=== PATIENT | female | born 1930 | race Caucasian/White ===

== ENCOUNTER 2020-03-20 09:54 | Inpatient (IN) | payer MEDICARE, OTHER ==
[2020-03-20] MEDS ORDERED: Fentanyl 100 MCG/2 ML VIAL ONE (10:17)
--- NOTE | 2020-03-20 10:38 | RAD ---
Exam: Single view of the pelvis HISTORY: Pelvic and hip pain after fall COMPARISON: None FINDINGS: A single view the pelvis shows an intertrochanteric right femur fracture. Mild overlying so ft tissue swelling is seen. No degenerative changes seen in either hip. Degenerative changes are seen in the lumbar spine. IMPRESSION: Intertrochanteric right femur fracture
--- NOTE | 2020-03-20 10:38 | RAD ---
EXAM: 2 views of the right hip HISTORY: Right hip pain after fall COMPARISON: None FINDINGS: 2 views of the right hip shows an intertrochanteric right femur fracture. No degenerative c hanges are seen. Mild overlying soft tissue swelling is present. IMPRESSION: Intertrochanteric right femur fracture
--- NOTE | 2020-03-20 10:39 | RAD ---
EXAM: Single view of the chest HISTORY: Unwitnessed fall with right hip fracture COMPARISON: None FINDINGS: Single view of the chest shows a normal sized cardiomediastinal silhouette. Atheroscleroti c calcifications are seen in the aorta. There is a large hiatal hernia. There is elevation the right hemidiaphragm. There is no evidence of consolidation, mass, or pleural effusion. No acute osseo us abnormality. IMPRESSION: 1. No evidence of acute cardiopulmonary disease 2. Large hiatal hernia
--- NOTE | 2020-03-20 10:56 | CT ---
Cervical spine CT without contrast: 03/20/2020 COMPARISON: None HISTORY: Fall, trauma, assess for fracture TECHNIQUE: Axial CT imaging at 2.5 mm intervals through the cervical spine without contrast. Coronal and sagittal reformatted imaging obtained. FINDINGS: Visualized lung apices are unremarkable. There is atherosclerotic calcification of the aort ic arch. The occipital condyles, the dens, the craniocervical junction, the atlantoaxial interspace, and the c ervicothoracic junction demonstrate no acute findings. There is prominent degenerative change at the atlantoaxial interspace. There is significant degenerat windy change at the C1-2 articulation on the left. There is multilevel mid cervical spine facet and uncovertebral osteophyte formation, right greater than left. No displaced fracture or evidence of dislocation is appreciated. There is a hypodense 1.4 cm nodule w ithin the posterior aspect of the left lobe of the thyroid gland for which follow-up thyroid ultrasound is suggested. IMPRESSION: Extensive cervical spine degenerative change with no evidence for acute fracture or dislo cation. Posterior left thyroid nodule as above.
--- NOTE | 2020-03-20 10:58 | CT ---
Head CT without contrast 03/20/2020: Comparison: None HISTORY: Fall, trauma, pain TECHNIQUE: Axial CT imaging at 5 mm intervals from vertex through skull base without contrast FINDINGS: The visualized paranasal sinuses and mastoid air cells are well-aerated. There is no displa nataly calvarial fracture. There is mild diffuse cerebral volume loss. Mild periventricular hypodensity is noted, evidence of small vessel disease. No intracranial hemorrhage, midline shift, or mass effect. IMPRESSION: No intracranial hemorrhage or displaced calvarial fracture.
[2020-03-20 11:33] LABS: Bacteria/HPF 3+ HPF (None Seen); Bilirubin Negative (Negative); Blood, Urine 1+ (Negative); Clarity Extra Turbid (Clear); Glucose, Urine (Dipstick) Normal (Negative); Ketone, Urine Trace mg/dL (Negative); Leukocyte 500 Leu/uL (Negative); Nitrite Negative (Negative); Protein, Urine (Dipstick) 300 mg/dL (Neg-Trace); RBC/HPF 21-50 HPF (0-3); Specific Gravity, Urine 1.023 (1.002-1.036); Squamous Epithelial 0-3 HPF (0-3); Urobilinogen Normal mg/dL (Less than 2); WBC/HPF Greater than 50 HPF (0-3); pH, Urine 6.5 (5.0-9.0)
[2020-03-20 11:45] LABS: #Basophils 0.1 thou/uL (0.0-0.2); #Eosinphils 0.1 thou/uL (0.0-0.7); #Lymphocytes 1.6 thou/uL (1.20-3.40); #Monocytes 0.6 thou/uL (0.11-0.59); #Neutrophils 9.6 thou/uL (1.40-6.50); %Basophils 0.7 % (0.0-1.0); %Eosinophils 1.2 % (0.0-10.0); %Lymphocytes 13.3 % (21.0-51.0); %Monocytes 4.6 % (0.0-10.0); %Neutrophils 80.2 % (42.0-75.0); Hemoglobin 12.6 g/dL (12.0-16.0); Mean Corpuscular HGB CONC 31.7 g/dL (32.0-36.0); Mean Corpuscular Hemoglobin 32.1 pg (27.0-31.0); Mean Platelet Volume 7.5 fL (7.4-10.4); Platelet Count 265 thou/uL (130-400); RBC Distribution Width 12.6 % (11.5-14.5); Red Blood Cell (RBC) Count 3.92 mill/uL (4.20-5.40)
[2020-03-20 11:51] LABS: PTT 26.5 sec (22.9-36.1); Prothrombin Time 13.7 sec (12.0-14.7)
[2020-03-20 12:11] LABS: ALT (SGPT) 12 U/L (8-55); AST (SGOT) 13 U/L (5-34); Albumin 3.2 g/dL (3.4-4.8); Alkaline Phosphatase 84 U/L (40-110); Anion Gap 13 mmol/L (10-20); BUN (Urea Nitrogen) 22 mg/dL (9.8-20.1); Bilirubin, Total 0.5 mg/dL (0.2-1.2); CK (CPK) 55 U/L (29-168); Calc. Creatinine Clearance 0 mL/min (70-130); Calcium 8.7 mg/dL (7.8-10.44); Carbon Dioxide 26 mmol/L (23-31); Chloride 106 mmol/L (98-107); Estimated GFR-MDRD 66; Globulin 3.8 g/dL (2.4-3.5); Glucose 131 mg/dL (83-110); Potassium 3.4 mmol/L (3.5-5.1); Sodium 142 mmol/L (136-145)
[2020-03-20] MEDS ORDERED: cefTRIAXone\\ROCEPHIN 2 GM VIAL ONE (12:17)
[2020-03-20 13:27] LABS: Phosphorus 3.1 mg/dL (2.3-4.7)
[2020-03-20] MEDS ORDERED: CEFAZOLIN 2 GM in Premix Bag 1 BAG IVPB SCH (13:30)
[2020-03-20] MEDS ORDERED: Morphine 2 MG/ML VIAL SLOW IVP PRN (14:01)
[2020-03-20] MEDS ORDERED: Dextrose 50% Abboject 50 ML SYRINGE SLOW IVP PRN (14:01)
[2020-03-20] MEDS ORDERED: Dextrose 5% in Water 1,000 ML IV PRN (14:01)
[2020-03-20] MEDS ORDERED: Ondansetron PF 4 MG/2 ML Vial IVP PRN (14:01)
[2020-03-20] MEDS ORDERED: traMADol HCl 50 MG TAB PO PRN ×2 (14:03)
[2020-03-20] MEDS ORDERED: Ondansetron PF 4 MG/2 ML Vial ONE (14:03)
[2020-03-20] MEDS ORDERED: Morphine 4 MG/ML VIAL ONE (14:03)
[2020-03-20] MEDS ORDERED: Cyclobenzaprine 10 MG TAB PO PRN (14:03)
--- NOTE | 2020-03-20 14:10 | CON ---
DATE OF CONSULTATION: This is Miguel Jenkins PA-C dictating a report for Francisco Arriaga MD. HISTORY OF PRESENT ILLNESS: We were asked by ER to see the patient. The patient resides in [facility] when she had a fall sustaining a right hip fracture. The patient has fairly significant dementia, so getting history from daughter, who is at the bedside. Daughter says mom gets around okay, dementia is obviously getting worse unfortunately, but is able to do most of her activities, feed herself, but needs some help with memory. It is not sure when the patient fell, but was found down this morning. She has a small little abrasion cut to the back of the head, so no one is sure if there was any loss of consciousness. So far, the patient has gotten 100 of fentanyl because she does have some right hip pain, and if she moves, it tends to get worse. Otherwise while I am talking to the daughter, the patient is moving both of her feet. PAST MEDICAL HISTORY: Positive for Alzheimer dementia; osteoarthritis; some hypertension; GERD; esophagitis; hyperlipidemia; cervicalgia; hearing loss; delusional disorder; depressive disorder; constipation; cardiac arrhythmia, unspecified; anemia; urinary tract infection currently; and weight loss. This is all gleaned from her medical record that was sent to us from the skilled facility. ALLERGIES: HYDROCODONE, CIPRO, SULFACETAMIDE, AND ADHESIVE BANDAGES. PAST SURGICAL HISTORY: She has had a knee replacement, hysterectomy. FAMILY HISTORY: Noncontributory. MEDICATIONS: 1. Tylenol. 2. Aspirin. 3. Calcium. 4. Vitamin D3. 5. Centrum Silver. 6. Calcium tablets. 7. Cranberry capsule. 8. Duloxetine. 9. Garlic capsule. 10. Losartan. 11. Potassium. 12. MiraLAX. 13. Pravastatin. 14. Risperdal. SOCIAL HISTORY: Resides in [facility]. Oldest daughter is at the bedside. No alcohol, nicotine, drug uses currently or in the past. REVIEW OF SYSTEMS: Obvious hip pain, some confusion, and recurrent UTI. Otherwise, rest of the review of systems is unobtainable. PHYSICAL EXAMINATION: Mildly undernourished, very pleasant, sweet female, resting on a gurney in room 1 in the ER. No acute distress unless she moves. I could get the patient to verbalize, response to any questions. Scalp; small abrasion and laceration to the posterior scalp that is mildly tender to palpation. Face symmetric. Tongue midline. Neck is supple. No tenderness to palpation. Moving upper extremities equally. Respirations 16. No acute distress. Pelvis; no pain with rocking pelvis, but does cause right hip pain. Any movement of the right lower extremity causes her good deal of pain. Bilateral lower DP and PT pulses are intact. Movements to both feet are intact and she responds to stimuli. LABORATORY DATA: White blood cell count 12, hemoglobin 12.6, hematocrit 39.8, platelets 265. Coags normal. Chemistries; BUN 22, glucose 131. Urine positive for UTI, wbc's greater than 50, bacteria 3+. IMAGING STUDIES: X-rays show a right intertrochanteric fracture. PLAN: We will let Trauma see the patient today, get her medically tuned up if needed. I have reserved a spot in the operating room for 7:30 tomorrow morning. I have gone over the risks and benefits of surgery with the family. The oldest daughter is at the bedside. I have gone over questions, concerns, and answered these, and family is amenable to go forth with surgery. We will keep her n.p.o. after midnight, get her on some antibiotics for presurgery and postsurgery and get her consented. Oldest daughter states different sister will be here tomorrow, so if other questions or concerns arise, we will address them at that time. Job ID: [id number]
[2020-03-20] MEDS ORDERED: Sodium Chloride 0.9% 1,000 ML IV SCH (14:15)
[2020-03-20] MEDS ORDERED: Potassium Phosphate 30 MMOL in Sodium Chloride 0.9% 250 ML 250 ML IVPB SCH (15:30)
--- NOTE | 2020-03-20 16:25 | HP ---
TRAUMA SURGEON: Dr. Marc. CONSULTING PHYSICIAN: Dr. Arriaga. HISTORY OF PRESENT ILLNESS: The patient is an 89-year-old female, who presented to the emergency department via EMS after she was found down at her detention. The patient's family is at the bedside. They report the patient usually ambulates without a walker or cane. She does have a history of dementia. She is intermittently able to recognize her family members and is usually cooperative. They do report at this time her mental status has declined from her baseline, and she is not able to easily communicate. She moves all her extremities. Her eyes are open spontaneously. It is unsure if the patient hit her head or had a loss of consciousness. She does have a recent history of UTI as well, on Keflex. The patient currently is taking aspirin, but no other anticoagulation. Upon my evaluation, the patient had right-sided hip pain and appeared to be uncomfortable earlier. She had received fentanyl IV. She remains hemodynamically stable. Zavala catheter has been placed with yellow urine in bag. The patient has also received one dose of IV Rocephin in the emergency department. Orthopedic Surgery has evaluated the patient and planned to take her to the OR tomorrow. REVIEW OF SYSTEMS: Unable to complete as the patient has altered mental status and history of dementia. PAST MEDICAL HISTORY: Positive for Alzheimer disease, hyperlipidemia, delusional disorder, depression, chronic pain, hearing loss, hypertension, GERD, osteoarthritis, osteoporosis, and arrhythmia of unknown origin. PAST SURGICAL HISTORY: Right knee replacement and hysterectomy. SOCIAL HISTORY: Negative for tobacco, drug, or alcohol use. The patient lives at a detention full-time. MEDICATIONS: Include; 1. Tylenol. 2. Aspirin 81 mg once a day. 3. Calcium with vitamin D3. 4. Centrum Silver. 5. Cholecalciferol. 6. Cranberry capsules. 7. Duloxetine. 8. Garlic capsules. 9. Losartan. 10. MiraLAX. 11. Pravastatin. 12. Risperdal. ALLERGIES: Cipro, Hydrocodone, tape, Sulfacet. PHYSICAL EXAMINATION: VITAL SIGNS: Temperature 98.5, pulse 86, respirations 24, oxygen saturation 94% on room air, and blood pressure 128/69. PRIMARY SURVEY: Airway intact. Adequate breath sounds bilaterally. 2+ pulses in bilateral radials, femorals, and DPs. GCS 14, -1 for confusion, this is the patient's baseline; however, family reports she is more confused than usual. Gross motor and sensation intact. The patient has some scattered bruising on her extremities with a skin tear on her left upper extremity. Right-sided shoulder bruise appears to be subacute. No signs of any external bleeding. SECONDARY SURVEY: HEAD: Normocephalic. No gross palpable skull deformities or tenderness. EYES: Pupils 3-2, equal, round, reactive to light bilaterally. ENT: No hemotympanum. No epistaxis. No septal hematoma. Midface stable to manipulation. No blood in the oropharynx. Dentition is intact. No anterior neck injury/crepitus/tenderness. C-SPINE: No step-offs or deformities. Nontender. C-collar not in place. CHEST: Nontender. No crepitus. No abrasions or ecchymosis noted. Equal chest movement, clear bilaterally. ABDOMEN: Soft, nontender, nondistended. PELVIS: Stable to palpation. Nontender. No abrasions or ecchymosis noted. RECTAL: Deferred. GENITOURINARY: Normal external genitalia with Zavala in place with yellow urine in bag. EXTREMITIES: Right lower extremity slightly shortened compared to the left with some pain over the right eye. No abrasions or ecchymosis noted. 2+ pulses in bilateral radials, femorals, and DPs. BACK/SPINE: No step-offs or deformities. Nontender. No abrasions or ecchymosis noted. NEUROLOGIC: 5/5 strength in bilateral manufacturing sales representative, plantar flexion, dorsiflexion. Gross normal sensation x4 extremities. LABORATORY FINDINGS: White count 12.0, hemoglobin 12.6, hematocrit 39.5, and platelets 265. INR 1.0, PTT 26.5. Sodium 142, potassium 3.4, chloride 106, bicarb 26, BUN 22, creatinine 0.82, glucose 131, phosphorus 3.1, magnesium 2.0, total bilirubin 0.5, AST 13, ALT 12, and alkaline phosphatase 28. CK 55. UA is positive for bacteria, white cells, leuk esterase, trace ketones, protein, 1+ blood. CT scan of the brain demonstrates no intracranial hemorrhage or displaced calvarial fracture. CT scan of the C-spine demonstrates extensive cranial spine degenerative changes with no evidence of acute fracture dislocation. Posterior left thyroid nodule as above. X-ray of the right hip demonstrates intertrochanteric right femur fracture. Chest x-ray demonstrates no evidence of acute cardiopulmonary disease. Large hiatal hernia. X-ray of the pelvis demonstrates intertrochanteric right femur fracture. ASSESSMENT: 1. Status post found down in her detention. 2. Right intertrochanteric femur fracture. 3. Urinary tract infection, complicated. 4. Acute traumatic pain secondary to injuries listed above. 5. History of Alzheimer disease, hyperlipidemia, depression, chronic pain, hearing loss, hypertension, gastroesophageal reflux disease, osteoarthritis, osteoporosis, and arrhythmia. PLAN: The patient will be admitted to the Trauma Service, and she will go to the regular surgical nursing floor. She will have a regular diet. N.p.o. at midnight. She is to receive 1 L of normal saline at 75 an hour x1 bag. She will receive both scheduled and p.r.n. pain medications. Orthopedic Surgery has evaluated the patient and plans to take her to the OR tomorrow. We will restart her home medications as clinically indicated. Received rocephin in ED for compliucated UTI present on admission. Follow up culture on sensitivity and start antibiotics as indicated. Postoperatively, she will work with Physical and Occupational Therapy. She will likely need placement in a usp facility. We will likely discharge her back to her detention to a skilled bed. This patient was discussed with Dr. Marc before this dictation. Job ID: [id number] [facility]
[2020-03-20] MEDS: Acetaminophen 500 MG TAB PO SCH ×2 (17:51→23:31)
[2020-03-20] MEDS: Famotidine/PF 20 mg/2ml Vial SLOW IVP SCH (20:13)
[2020-03-20] MEDS: Senokot S 8.6-50 MG TAB PO SCH (20:13)
[2020-03-20 20:25] VITALS: BMI 26.2
--- NOTE | 2020-03-20 23:34 | PRG ---
DATE OF SERVICE: 03/20/2020 SUBJECTIVE: Patient was seen during evening rounds, resting comfortably, in no acute distress. The patient's pain has been well controlled. OBJECTIVE: VITAL SIGNS: Stable, afebrile. GENERAL: Elderly female, resting comfortably, in no distress. PLAN: Continue pain regimen and supportive care. Orthopedic Surgery, Dr. Arriaga plans to take the patient to the OR around 7:30 in the morning for repair of her right intertrochanteric femur fracture. The patient's urinalysis is pending cultures. We will have PT and OT work with the patient postop tomorrow. Job ID: [id number]
[2020-03-21] MEDS: Acetaminophen 500 MG TAB PO SCH ×6 (05:03→23:48)
[2020-03-21 05:28] LABS: #Basophils 0.1 thou/uL (0.0-0.2); #Eosinphils 0.1 thou/uL (0.0-0.7); #Lymphocytes 1.3 thou/uL (1.20-3.40); #Monocytes 0.7 thou/uL (0.11-0.59); #Neutrophils 6.6 thou/uL (1.40-6.50); %Basophils 0.6 % (0.0-1.0); %Eosinophils 0.9 % (0.0-10.0); %Lymphocytes 15.3 % (21.0-51.0); %Monocytes 7.7 % (0.0-10.0); %Neutrophils 75.5 % (42.0-75.0); Hemoglobin 12.1 g/dL (12.0-16.0); Mean Corpuscular HGB CONC 31.5 g/dL (32.0-36.0); Mean Platelet Volume 7.4 fL (7.4-10.4); Platelet Count 232 thou/uL (130-400); RBC Distribution Width 12.8 % (11.5-14.5); Red Blood Cell (RBC) Count 3.78 mill/uL (4.20-5.40); White Blood Cell (WBC) Count 8.8 thou/uL (4.8-10.8)
[2020-03-21 05:51] LABS: Anion Gap 14 mmol/L (10-20); BUN (Urea Nitrogen) 21 mg/dL (9.8-20.1); Calc. Creatinine Clearance 54 mL/min (70-130); Calcium 8.1 mg/dL (7.8-10.44); Carbon Dioxide 23 mmol/L (23-31); Chloride 108 mmol/L (98-107); Estimated GFR-MDRD 73; Glucose 107 mg/dL (83-110); Magnesium 1.8 mg/dL (1.6-2.6); Phosphorus 3.6 mg/dL (2.3-4.7); Potassium 3.8 mmol/L (3.5-5.1); Sodium 141 mmol/L (136-145)
[2020-03-21] MEDS ORDERED: Fentanyl 100 MCG/2 ML VIAL ONE (06:20)
[2020-03-21] MEDS ORDERED: Albuterol Sulfate HFA (OR ONLY) ONE (06:20)
[2020-03-21] MEDS ORDERED: Lidocaine 4% Topical Sol 50 ML BOT ONE (06:20)
[2020-03-21] MEDS ORDERED: Dexamethasone 4 mg/ml Vial ONE (06:51)
[2020-03-21] MEDS ORDERED: Lidocaine 1% (PF) 30 ML VIAL ONE (06:55)
[2020-03-21] MEDS ORDERED: Bupivacaine PF 0.5% 30 ML VIAL ONE (07:16)
[2020-03-21 08:06] LABS: SARS-CoV-2 NAA Rapid Test Not Detected (NotDetected)
--- NOTE | 2020-03-21 08:46 | RAD ---
EXAM: 2 views of the right hip HISTORY: Right femur fracture COMPARISON: None FINDINGS: 2 views of the right hip shows the patient is status post ORIF of the intertrochanteric rig ht femur fracture. No perihardware lucency is seen. No degenerative changes are seen. No soft tissue swelling is present. IMPRESSION: Status post ORIF of right femur fracture without evidence of complication
[2020-03-21] MEDS ORDERED: Phenylephrine 10 MG/ML VIAL ONE (09:22)
[2020-03-21] MEDS ORDERED: PHENYLEPHRINE-NS 100 MCG/ML 10 ML SYRINGE ONE (09:53)
[2020-03-21] MEDS ORDERED: PROPOFOL 200 MG/20 ML VIAL ONE (09:53)
[2020-03-21] MEDS ORDERED: Ondansetron PF 4 MG/2 ML Vial ONE (09:53)
[2020-03-21] MEDS ORDERED: Dexamethasone 20 MG/5 ML VIAL ONE (09:53)
[2020-03-21] MEDS ORDERED: Bupivacaine HCl 0.5%/Epinephrine 1:200,000/PF 30 ml Vial ONE (09:53)
[2020-03-21] MEDS ORDERED: EPHEDRINE 25 MG/5 ML SYRINGE ONE (09:53)
[2020-03-21] MEDS: Polyethylene Glycol 3350 17 GM Packet PO SCH (10:52)
[2020-03-21] MEDS: Senokot S 8.6-50 MG TAB PO SCH ×2 (10:52→21:33)
[2020-03-21] MEDS: Losartan 25 MG TAB PO SCH (10:54)
--- NOTE | 2020-03-21 11:49 | OP ---
DATE OF PROCEDURE: 03/21/2020 PREOPERATIVE DIAGNOSIS: Right intertrochanteric femur fracture. POSTOPERATIVE DIAGNOSIS: Right intertrochanteric femur fracture. PROCEDURE PERFORMED: Right dynamic hip screws for intertrochanteric femur fracture. ANESTHESIA: Spinal. FORENSIC MANAGER: Yarelis Pastrana PA-C IMPLANTS: Synthes DHS set was used with 135-degree 3-hole side plate. ESTIMATED BLOOD LOSS: 200 mL. COMPLICATIONS: None. DRAINS: None. SPECIMEN: None. OUTCOME: Satisfactory. INDICATIONS FOR PROCEDURE: The patient is an 89-year-old lady, status post ground level fall sustaining a right intertrochanteric femur fracture. After discussion with the patient and her daughter including risks and benefits, we have decided to proceed with open reduction and internal fixation utilizing a DHS device. Risks and benefits have been discussed and informed consent obtained. DESCRIPTION OF PROCEDURE: The patient was brought to the operating room and a time-out performed followed by induction of spinal anesthesia. The patient was positioned supine on the fracture table with the injured extremity held in longitudinal traction and slight internal rotation. The well leg was scissored to allow for AP and lateral C-arm imaging of the hip. Next, a sterile prep and drape was performed of the right lateral thigh. Under C-arm guidance, a skin incision was made at the proximal lateral thigh. After skin was sharply incised, dissection was carried down bluntly to the underlying fascia fabiola. This was incised in line with the skin incision reflected anteriorly and posteriorly. The fascia of the vastus lateralis was incised in line with skin incision and the muscle belly swept off the posterior leaflet and reflected anteriorly gaining access to the lateral cortex of the femur. 135 degree jig was used to pass a threaded guidewire from the lateral cortex of the femur up the femoral neck into the femoral head. Measurement of this guidewire was used to determine depth of reaming with the step reamer. Once the head and neck were prepared with the reamer, a 90 mm hip screw with 3-hole sideplate was inserted in the wound with the hip screw delivered up into the femoral head approaching a [id number] position. The plate was then held in place to the lateral cortex of the proximal femur with a total of 3 cortical screws. At completion of this, the jig was removed from the plate and hip screw, and final AP and lateral C-arm images were obtained that showed anatomic alignment of the fracture. The wound was then irrigated with bulb syringe and closed in layers with 0 Vicryl for the fascia fabiola, followed by 2-0 Vicryl subcutaneously, and newton for the skin. A Xeroform gauze and tape dressing were then applied to the lateral thigh. It should be noted that my assistant associate professor was utilized for reflection of the vastus lateralis muscle belly to allow for exposure of the lateral femur so that I could proceed with placement of hardware. Head Of Housekeeping was also used for manipulation of the leg to provide an anatomic reduction prior to insertion of hardware. There were no complications. The patient tolerated the procedure well. Job ID: [id number]
[2020-03-21] MEDS: CEFAZOLIN 2 GM in Premix Bag 1 BAG IVPB SCH ×2 (16:52→23:48)
--- NOTE | 2020-03-21 19:05 | PRG ---
DATE OF SERVICE: 03/21/2020 SUBJECTIVE: Patient was seen this morning during rounds. She was sitting up in bed with no signs of acute distress. She is postoperative day 0 after fixation of her right intertrochanteric femur fracture. Patient's daughter is at bedside, reported that she is much more alert and herself today. She has not had anything to eat postoperatively yet. She will work with Physical and Occupational Therapy and will likely need placement at a [facility] facility. She [facility] in a [facility]. OBJECTIVE: VITAL SIGNS: Temperature 98.1, pulse 69, respirations 18, oxygen saturation 96% on 2 L nasal cannula, blood pressure 102/64. GENERAL: Well-appearing elderly female, sitting up in bed with no signs of acute distress. PULMONARY: Equal chest rise and fall, clear breath sounds bilaterally. No signs of acute respiratory distress. CARDIAC: Regular rate and rhythm. GI: Abdomen is soft, nontender, nondistended. EXTREMITIES: 2+ pulses in all extremities. Gross motor and sensation intact. No significant swelling noted. NEUROLOGIC: GCS is 14. This is her baseline. LABORATORY FINDINGS: White count 8.8, hemoglobin 12.1, hematocrit 38.4, platelets 232. Sodium 141, potassium 3.8, chloride 108, bicarb 23, BUN 21, creatinine 0.75, glucose 107. DIAGNOSTIC FINDINGS: There are no new diagnostic findings to discuss. ASSESSMENT: 1. Status post found down at [facility]. 2. Right intertrochanteric femur fracture, status post repair. 3. Urinary tract infection, complicated, present on admission. 4. History of Alzheimer's, hypertension, arrhythmia, GERD, depression, and chronic pain. PLAN: Continue regular diet. Discontinue IV fluids. Discontinue Zavala catheter. Follow up urine culture. Additional antibiotics per culture result. Repeat blood work in the morning. Start physical and occupational therapy. The patient will be discharged back to her [facility] but with skilled bed when she is ready for discharge. Restart home medications as clinically indicated. This patient was seen and evaluated by Dr. Still and myself this morning during rounds. Job ID: [id number]
[2020-03-21] MEDS ORDERED: risperiDONE 0.25 MG TAB PO SCH (21:00)
[2020-03-21] MEDS: Atorvastatin Calcium 10 MG TAB PO SCH (21:33)
[2020-03-21] MEDS: Famotidine/PF 20 mg/2ml Vial SLOW IVP SCH (22:51)
--- NOTE | 2020-03-22 04:12 | PRG ---
DATE OF SERVICE: 03/22/2020 The patient is currently on the surgical floor. She is status post being found down at a residential where she was admitted for a right intertrochanteric femur fracture which she underwent surgical repair today, specifically the right dynamic hip screw. The patient tolerated this well. The nurses report no issues. She has a diet order and her medications have been changed to p.o. At the time of my visit, her vital signs were stable. She was afebrile. She was resting comfortably in bed. She appeared in no distress. I did not awaken her for an exam. PLAN: The plan will be to continue supportive care and begin working on placement once she is evaluated by Physical and Occupational Therapy. Job ID: [id number]
[2020-03-22 05:41] LABS: #Lymphocytes 1.4 thou/uL (1.20-3.40); #Monocytes 1.3 thou/uL (0.11-0.59); #Neutrophils 10.2 thou/uL (1.40-6.50); %Basophils 0.3 % (0.0-1.0); %Eosinophils 0.1 % (0.0-10.0); %Lymphocytes 11.2 % (21.0-51.0); %Neutrophils 78.5 % (42.0-75.0); Hemoglobin 11.2 g/dL (12.0-16.0); Mean Corpuscular HGB CONC 32.8 g/dL (32.0-36.0); Mean Platelet Volume 7.9 fL (7.4-10.4); Platelet Count 195 thou/uL (130-400); RBC Distribution Width 12.5 % (11.5-14.5); White Blood Cell (WBC) Count 12.9 thou/uL (4.8-10.8)
[2020-03-22] MEDS: Acetaminophen 500 MG TAB PO SCH ×4 (05:47→22:20)
[2020-03-22 06:16] LABS: Anion Gap 11 mmol/L (10-20); BUN (Urea Nitrogen) 19 mg/dL (9.8-20.1); Calc. Creatinine Clearance 55 mL/min (70-130); Calcium 8.3 mg/dL (7.8-10.44); Carbon Dioxide 27 mmol/L (23-31); Chloride 105 mmol/L (98-107); Estimated GFR-MDRD 74; Glucose 114 mg/dL (83-110); Magnesium 1.9 mg/dL (1.6-2.6); Phosphorus 2.6 mg/dL (2.3-4.7); Potassium 3.9 mmol/L (3.5-5.1); Sodium 139 mmol/L (136-145)
[2020-03-22] MEDS ORDERED: Famotidine/PF 20 mg/2ml Vial SLOW IVP SCH (09:00)
[2020-03-22] MEDS ORDERED: Magnesium 2 GM/50 ML 2 GM in Premix Bag 1 BAG IVPB SCH (09:00)
[2020-03-22] MEDS ORDERED: PHOS-NAK 1 PKT PACK PO SCH (09:00)
[2020-03-22] MEDS: Polyethylene Glycol 3350 17 GM Packet PO SCH (09:22)
[2020-03-22] MEDS: CEFAZOLIN 2 GM in Premix Bag 1 BAG IVPB SCH (09:22)
[2020-03-22] MEDS: Aspirin 81 mg Enteric Coated Tablet PO SCH ×2 (09:24→22:17)
[2020-03-22] MEDS: Famotidine 20 MG TAB PO SCH ×2 (09:24→22:18)
[2020-03-22] MEDS: Senokot S 8.6-50 MG TAB PO SCH ×2 (09:24→22:18)
[2020-03-22] MEDS: Losartan 25 MG TAB PO SCH (09:25)
--- NOTE | 2020-03-22 16:34 | PRG ---
DATE OF SERVICE: 03/22/2020 SUBJECTIVE: The patient was seen this morning during rounds. She was sitting up in her bed, a little bit more sleepy than yesterday. Daughter at the bedside reports that she is not as awake and alert as yesterday. She is currently not receiving any scheduled pain medications other than Tylenol. She was restarted on her Risperdal, which we will hold for now. OBJECTIVE: VITAL SIGNS: Temperature 98.2, pulse 64, respirations 14, oxygen saturation 93% on room air, and blood pressure 138/82. GENERAL: Well-appearing elderly female, sitting up in bed, resting comfortably and asleep, with no signs of acute distress. She is easily arousable. PULMONARY: Equal chest rise and fall. Clear breath sounds bilaterally. No signs of acute respiratory distress. CARDIAC: Regular rate and rhythm. GI: Abdomen is soft, nontender, and nondistended. EXTREMITIES: 2+ pulses in all extremities. Gross motor and sensation intact. No significant swelling noted. NEUROLOGIC: GCS is 14, -1 for confusion. LABORATORY FINDINGS: White count 12.9, hemoglobin 11.2, hematocrit 34.2, and platelets 195. Sodium 139, potassium 3.9, chloride 105, bicarb 27, BUN 19, creatinine 0.74, and glucose 114. Phosphorus 2.6. Magnesium 1.9. DIAGNOSTIC FINDINGS: There are no new diagnostic findings to report. ASSESSMENT: 1. [facility] 2. Right intertrochanteric femur fracture status post repair. 3. Urinary tract infection, complicated, status post treatment outside of the hospital. 4. History of Alzheimer's. 5. Hypertension. 6. Arrhythmia. 7. Gastroesophageal reflux disease. 8. Depression. 9. Chronic pain. PLAN: Continue current diet and pain regimen. Continue physical and occupational therapy. Hold risperidone for now. Start the patient on aspirin for DVT prophylaxis. Replace magnesium and phosphorus. The patient's culture completed at the time of this admission status post treatment of UTI did not grow any thing except skin bushra. The patient is pending discharge to swing bed in [place]. She will be ready for discharge tomorrow if she continues to improve. Job ID: [id number]
[2020-03-22] MEDS: Atorvastatin Calcium 10 MG TAB PO SCH (22:17)
[2020-03-23 05:39] LABS: #Basophils 0.1 thou/uL (0.0-0.2); #Eosinphils 0.2 thou/uL (0.0-0.7); #Lymphocytes 2.1 thou/uL (1.20-3.40); #Monocytes 0.9 thou/uL (0.11-0.59); #Neutrophils 4.9 thou/uL (1.40-6.50); %Basophils 1.1 % (0.0-1.0); %Eosinophils 2.3 % (0.0-10.0); %Lymphocytes 26.1 % (21.0-51.0); %Monocytes 10.8 % (0.0-10.0); %Neutrophils 59.8 % (42.0-75.0); Hemoglobin 10.4 g/dL (12.0-16.0); Mean Corpuscular HGB CONC 32.9 g/dL (32.0-36.0); Mean Corpuscular Hemoglobin 32.9 pg (27.0-31.0); Mean Platelet Volume 7.9 fL (7.4-10.4); Platelet Count 192 thou/uL (130-400); RBC Distribution Width 12.5 % (11.5-14.5); Red Blood Cell (RBC) Count 3.15 mill/uL (4.20-5.40); White Blood Cell (WBC) Count 8.2 thou/uL (4.8-10.8)
[2020-03-23 05:56] LABS: Anion Gap 10 mmol/L (10-20); BUN (Urea Nitrogen) 21 mg/dL (9.8-20.1); Calc. Creatinine Clearance 57 mL/min (70-130); Calcium 8.1 mg/dL (7.8-10.44); Carbon Dioxide 26 mmol/L (23-31); Chloride 104 mmol/L (98-107); Estimated GFR-MDRD 78; Glucose 92 mg/dL (83-110); Phosphorus 2.4 mg/dL (2.3-4.7); Potassium 3.8 mmol/L (3.5-5.1); Sodium 136 mmol/L (136-145)
[2020-03-23] MEDS: Acetaminophen 500 MG TAB PO SCH ×3 (06:06→17:00)
--- NOTE | 2020-03-23 08:06 | PRG ---
DATE OF SERVICE: 03/23/2020 The patient is currently on the day surgical floor. She is postop day 2 status post open reduction and internal fixation of a right hip fracture. She has tolerated that procedure well. She has begun working with Physical and Occupational therapy though today, it was fairly limited and she will most likely require placement in a swing bed facility or skilled facility which the day team and case management are working on. Her vital signs are stable. She is afebrile. Nurses report no issues. At the time of my visit, she was resting comfortably. She was asleep. She appeared in no distress. We will continue working on placement, encourage physical and occupational therapy. Job ID: [id number]
[2020-03-23] MEDS ORDERED: PHOS-NAK 1 PKT PACK PO SCH (08:30)
[2020-03-23] MEDS: Polyethylene Glycol 3350 17 GM Packet PO SCH (10:20)
[2020-03-23] MEDS: Aspirin 81 mg Enteric Coated Tablet PO SCH ×2 (10:21→20:48)
[2020-03-23] MEDS: Famotidine 20 MG TAB PO SCH ×2 (10:21→20:48)
[2020-03-23] MEDS: Senokot S 8.6-50 MG TAB PO SCH ×2 (10:21→20:48)
[2020-03-23] MEDS: Losartan 25 MG TAB PO SCH (10:22)
[2020-03-23] MEDS ORDERED: Ibuprofen 600 MG TAB PO PRN (12:20)
[2020-03-23] MEDS ORDERED: Haloperidol Lactate 5 MG/ML VIAL SLOW IVP PRN (15:39)
--- NOTE | 2020-03-23 15:43 | PRG ---
DATE OF SERVICE: 03/23/2020 SUBJECTIVE: Patient was seen this morning during rounds. She was sitting up, appeared quite sleepy, but she was arousable. The patient's daughter reports that the patient is less sleepy than before. The patient reports she has pain in her right hip and we will like to avoid giving her anything to make her too sleepy, so we will try giving her ibuprofen. OBJECTIVE: VITAL SIGNS: Temperature 98.2, pulse 65, respirations 18, oxygen saturation 93% on room air, blood pressure 119/73. GENERAL: Well-appearing elderly female, sitting up in bed with no signs of acute distress. PULMONARY: Equal chest rise and fall, clear breath sounds bilaterally. No signs of acute respiratory distress. CARDIAC: Regular rate and rhythm. GI: Abdomen is soft, nontender, nondistended. EXTREMITIES: 2+ pulses in all extremities. Gross motor and sensations intact. No significant swelling noted. NEUROLOGIC: GCS is 14, -1 one for confusion, this is her baseline. LABORATORY FINDINGS: White count 8.2, hemoglobin 10.4, hematocrit 31.5, platelets 192. Sodium 136, potassium 3.8, chloride 104, bicarb 26, BUN 21, creatinine 0.71, glucose 92, phosphorus 2.4, magnesium 2.0. DIAGNOSTIC FINDINGS: There are no new diagnostic findings to report. ASSESSMENT: 1. Status post found down. 2. Right intertrochanteric femur fracture, status post repair. 3. Urinary tract infection, resolved. 4. History of Alzheimer disorder, hypertension, arrhythmia, gastroesophageal reflux disease, depression, and chronic back pain. PLAN: Continue current diet and pain regimen. Continue physical and occupational therapy. Replace phosphorus p.o. The patient is pending discharge to a [facility] facility. We will add p.r.n. ibuprofen to her medications in order to decrease the amount of sedating medications used. The patient will likely be ready for discharge tomorrow and hopefully can go to [facility] bed. Job ID: [id number]
[2020-03-23] MEDS: Atorvastatin Calcium 10 MG TAB PO SCH (20:48)
[2020-03-24] MEDS: Acetaminophen 500 MG TAB PO SCH ×4 (01:37→18:19)
[2020-03-24] MEDS: Aspirin 81 mg Enteric Coated Tablet PO SCH ×2 (08:26→21:30)
[2020-03-24] MEDS: Polyethylene Glycol 3350 17 GM Packet PO SCH (08:27)
[2020-03-24] MEDS: Famotidine 20 MG TAB PO SCH ×2 (08:27→21:30)
[2020-03-24] MEDS: Senokot S 8.6-50 MG TAB PO SCH ×2 (08:28→21:30)
[2020-03-24] MEDS: Losartan 25 MG TAB PO SCH (08:29)
--- NOTE | 2020-03-24 18:59 | PRG ---
DATE OF SERVICE: 03/24/2020 SUBJECTIVE: The patient was seen this morning during rounds. Her daughter was at the bedside. She was sitting up in bed with no signs of acute distress. She reported her pain is well controlled, tolerating a diet. Has not had a bowel movement yet. Lactulose was added to her regimen. Continues to work with Physical Therapy. OBJECTIVE: VITAL SIGNS: Temperature 98.3, pulse 69, respirations 16, oxygen saturation 96% on room air, and blood pressure 127/81. GENERAL: Well-appearing elderly female, sitting up in bed with no signs of acute distress. PULMONARY: Equal chest rise and fall. Clear breath sounds bilaterally. No signs of acute respiratory distress. CARDIAC: Regular rate and rhythm. GI: Abdomen is soft, nontender, and nondistended. EXTREMITIES: 2+ pulses in all extremities. Gross motor and sensation are intact. No significant swelling noted. NEUROLOGIC: GCS is 14, -1 for occasional confusion. LABORATORY FINDINGS: There are no new laboratory findings to discuss. DIAGNOSTIC FINDINGS: There are no new diagnostic findings to discuss. ASSESSMENT: 1. Status post found down at halfway. 2. Right intertrochanteric femur fracture, status post repair. 3. Urinary tract infection, complicated-resolved. 4. History of Alzheimer's, hypertension, arrhythmia, gastroesophageal reflux disease, depression, and chronic pain. PLAN: Continue current diet and pain regimen. Add lactulose. Bowel regimen. Continue physical and occupational therapy. Continue supportive care. The patient to be discharged back to [facility] tomorrow. She is ready for discharge at this time. Job ID: [id number]
[2020-03-24] MEDS: Atorvastatin Calcium 10 MG TAB PO SCH (21:30)
[2020-03-25] MEDS: Acetaminophen 500 MG TAB PO SCH ×2 (00:15→05:46)
[2020-03-25 07:59] VITALS: TEMP 98.1
[2020-03-25] MEDS: Famotidine 20 MG TAB PO SCH (08:40)
[2020-03-25] MEDS: Losartan 25 MG TAB PO SCH (08:40)
[2020-03-25] MEDS: Senokot S 8.6-50 MG TAB PO SCH (08:40)
[2020-03-25] MEDS: Aspirin 81 mg Enteric Coated Tablet PO SCH (08:41)
[2020-03-25] MEDS: Polyethylene Glycol 3350 17 GM Packet PO SCH (08:41)
[2020-03-25 11:00] VITALS: BP 136/89
--- NOTE | 2020-03-26 03:58 | DIS ---
DATE OF ADMISSION: 03/20/2020 DATE OF DISCHARGE: 03/25/2020 DISCHARGING PHYSICIAN: Dr. Karl Still. CONSULTING PHYSICIAN: Dr. Francisco Arriaga with Orthopedics. ADMITTING DIAGNOSES: 1. Fall. 2. Right intertrochanteric femur fracture. 3. Urinary tract infection. 4. Acute traumatic pain. DISCHARGE DIAGNOSES: 1. Fall. 2. Right intertrochanteric femur fracture, status post open reduction and internal fixation. 3. Urinary tract infection, treated. 4. Acute traumatic pain, improving. 5. History of Alzheimer disease, hyperlipidemia, depression, chronic pain, hearing loss, hypertension, gastroesophageal reflux disease, arthritis, and arrhythmia. MEDICATIONS ON DISCHARGE: 1. Tylenol 1000 mg every 6 as needed. 2. Aspirin 81 mg b.i.d. 3. Atorvastatin 10 mg. 4. Cyclobenzaprine as needed. 5. Famotidine b.i.d. 6. Ibuprofen 400 mg every 8 as needed. 7. Tramadol 50 mg every 6 as needed. PROCEDURE PERFORMED: ORIF with right hip fracture on 03/21/2020. HOSPITAL COURSE: The patient was admitted through the emergency department to trauma service status post fall and Orthopedics was consulted. Patient went to the operating theatre on hospital day #1, tolerated the procedure well, was admitted to the surgery [facility] after PT/OT worked with the patient. The patient is going to be discharged back to [facility]. She had some difficulty with bowel movements initially, lactose was added and she was having bowel movements, spontaneously voiding, tolerating a diet. States that she is in no pain. Pleasantly confused. On the day of discharge, patient is in her usual state of health. Daughter is at the bedside. She is ready for discharge. PHYSICAL EXAMINATION: VITAL SIGNS: Temperature is 98.1, blood pressure 136/89, heart rate is 71, breathing 16 times per minute, 96% on room air. GENERAL: An 89-year-old female, sitting up, pleasantly confused. No acute distress. RESPIRATORY: Equal rise and fall. Bilateral breath sounds. Clear to auscultation in upper and lower lobes bilaterally, CARDIOVASCULAR: Regular rate and rhythm. No anshu edema. ABDOMEN: Soft. EXTREMITIES: She moves extremities. She has a dry dressing in place on the right hip. NEUROLOGIC: GCS is 14 for confusion. Otherwise, moves extremities. No focal deficits are appreciated. PSYCH: Normal mood and affect. SKIN: Warm and dry. LABORATORY DATA: To review. PLAN: Discharge to [facility]. The patient to follow with Orthopedics in 2 weeks as needed. Does not need to follow up with trauma clinic unless indicated. Follow up with PCP as indicated. Greater than 30 minutes was taken in discharge planning of this patient. Job ID: [id number]
== END 2020-03-25 11:00 | DRG 481 ==
LOC: ERS 09:54 → SURG A 13:01
PROVIDERS: ADMIT Specialist; ATTEND Specialist
PROC: 0T9B70Z Drainage of Bladder with Drainage Device, Via Natural or Artificial Opening (ICD-10-PCS; 2020-03-20)
PROC: 0QS604Z Reposition Right Upper Femur with Internal Fixation Device, Open Approach (ICD-10-PCS; principal; 2020-03-21)
DX: S72.141A Displaced intertrochanteric fracture of right femur, initial encounter for closed fracture (principal); N39.0 Urinary tract infection, site not specified; W19.XXXA Unspecified fall, initial encounter; Z20.828 Contact with and (suspected) exposure to other viral communicable diseases; G30.9 Alzheimer's disease, unspecified; F02.80 Dementia in other diseases classified elsewhere, unspecified severity, without behavioral disturbance, psychotic disturbance, mood disturbance, and anxiety; M19.90 Unspecified osteoarthritis, unspecified site; G89.29 Other chronic pain; K21.9 Gastro-esophageal reflux disease without esophagitis; K59.00 Constipation, unspecified; E78.5 Hyperlipidemia, unspecified; I10 Essential (primary) hypertension; D64.9 Anemia, unspecified; Z96.651 Presence of right artificial knee joint; M54.2 Cervicalgia; K21.00 Gastro-esophageal reflux disease with esophagitis, without bleeding; M81.0 Age-related osteoporosis without current pathological fracture; F32.9 Major depressive disorder, single episode, unspecified; I49.9 Cardiac arrhythmia, unspecified; Y92.129 Unspecified place in nursing home as the place of occurrence of the external cause; Z90.710 Acquired absence of both cervix and uterus; Z88.1 Allergy status to other antibiotic agents; Z88.6 Allergy status to analgesic agent; Z79.82 Long term (current) use of aspirin; Z79.899 Other long term (current) drug therapy
CPT/HCPCS: 36415; 51702; 70450; 71045; 72125; 72170; 76000; 80048; 80053; 81003; 81015; 82550; 83735; 84100; 85025; 85610; 85730; 86850; 86900; 86901; 87086; 87635; 93005; 94760; 96365; 96375; 96376; C1713; G0390; J0690; J0696; J1100; J2001; J2270; J2370; J2405; J2704; J3010; J3475; J7050; S0020; S0028; U0002; U0003